=== PATIENT | female | born 1930 | race Caucasian/White ===

== ENCOUNTER 2018-06-23 02:43 | Inpatient (IN) | payer OTHER ==
--- OUTSIDE RECORDS SUMMARY | 2018-06-23 02:46 | XMS REPORT | Clinical Summary ---
:1930 Author Organization [facility] Address [address] [place] [address] Care Team Providers Name Role Phone Pedrito Starr MD Primary Care Provider Allergies Active Allergy Reactions Severity Noted Date Comments Codeine Rash Low 07/12/2017 Rash inside mouth Medications Medication Sig Dispensed Refills Start Date End Date Status aspirin 81 MG EC tablet Take 81 mg by 0 Active mouth daily. gabapentin (NEURONTIN) Take 300 mg by 0 Active 300 MG capsule mouth daily. levothyroxine Take 50 mcg by 0 Active (SYNTHROID, LEVOTHROID) mouth Every 50 MCG tablet morning on an empty stomach. simvastatin (ZOCOR) 10 Take 10 mg by 0 Active MG tablet mouth nightly. multivitamin per tablet Take 1 tablet by 0 Active mouth daily. Active Problems Problem Noted Date Back pain with sciatica 07/14/2017 Right hip pain 07/14/2017 Myofascial pain 07/14/2017 Encounters Date Type Specialty Care Team Description 07/14/2017 Anesthesia Event Jourdan Crocker Jr., MD 07/14/2017 Surgery [place], INJECTION,EPIDURAL [place] STEROID LUMBAR CAUDAL CATHETER 07/14/2017 Hospital Encounter [place], Lumbar radiculopathy (Primary Dx) ; [place] Myofascial pain 07/12/2017 Hospital Encounter Pre-Admission Resource, Oqmt Testing Preadmit Phone after 06/22/2017 Social History Tobacco Use Types Packs/Day Years Used Date Never Smoker Smokeless Tobacco: Never Used Alcohol Use Drinks/Week oz/Week Comments No Sex Assigned at Date Recorded Not on file Job Start Date Occupation Industry Not on file Not on file Not on file Travel History Travel Start Travel End No recent travel history available. 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 Xiao, as an intra-procedure imaging consultation was not requested. Reported fluoroscopy time: 42.7 seconds. Signed: Alessandro Arreaga MD Report Verified Date/Time:07/14/2017 11:23:47 Reading Location: [address] Neuro Reading Room Procedure Note Interface, External Ris In - 07/14/2017 11:26 AM CDT FINAL REPORT Fluoroscopy 2 views intraoperative 07/14/2017 11:19 AM CLINICAL HISTORY: Instrument localization COMPARISON: None available IMPRESSION: Please correlate imaging report findings with the procedure note prepared by Dr. Xiao, as an intra-procedure imaging consultation was not requested. Reported fluoroscopy time: 42.7 seconds. Signed: Alessandro Arreaga MD Report Verified Date/Time: 07/14/2017 11:23:47 Reading Location: [facility] [id number] Neuro Reading Room Performing Organization Address City/State/Zipcode Phone Number GE RIS after 06/22/2017 Insurance Payer Benefit Plan / Group Subscriber ID Type Phone Address MEDICARE MEDICARE A B xxxxxxxxxx Medicare AETNA - [place]GD CARE AETNA INDEMNITY NON CONTR xxxxxxxxx Comm ([place]) [place] [id number]
--- OUTSIDE RECORDS SUMMARY | 2018-06-23 02:46 | XMS REPORT | Clinical Summary ---
:1930 Author Organization [facility] Address [address] [place] [address] Care Team Providers Name Role Phone Pedrito Starr MD Primary Care Provider Allergies Active Allergy Reactions Severity Noted Date Comments Codeine Rash Low 05/06/2016 Medications Medication Sig Dispensed Refills Start Date End Date Status multivitamin Take 1 tablet by 0 Active (THERAGRAN) tablet mouth daily. vit A,C and Take 2 tablets 0 Active A-nehhjg-zclfucet by mouth daily. (OCUVITE WITH LUTEIN) 1,000 unit-200 mg-60 unit-2 mg tablet per tablet aspirin (ECOTRIN) Take 81 mg by 0 Active 81 MG enteric mouth. coated tablet gabapentin TAKE 1 CAPSULE 3 06/07/2016 Active (NEURONTIN) 300 mg BY MOUTH THREE capsule TIMES DAILY. levothyroxine TAKE 1 TABLET BY 0 05/19/2016 Active (SYNTHROID, MOUTH EVERY LEVOXYL) 50 mcg MORNING tablet multivitamin-minera Take by mouth. 0 Active ls-lutein (MULTIVITAMIN 50 PLUS) tablet simvastatin (ZOCOR) Take 10 mg by 0 05/27/2016 Active 10 MG tablet mouth nightly. latanoprost Administer 1 2.5 mL 3 04/09/2018 Active (XALATAN) 0.005 % drop to both ophthalmic solution eyes nightly. dorzolamide-timolol Administer 1 0 Discontinued (COSOPT) 22.3-6.8 drop to the 9 mg/mL ophthalmic right eye 2 solution (two) times a day. latanoprost Administer 1 0 Discontinued (XALATAN) 0.005 % drop to the 9 ophthalmic solution right eye nightly. azelastine 0.15 % 0 06/28/2016 Discontinued (205.5 mcg) 9 spray,non-aerosol ipratropium USE 2 SPRAYS IN 0 06/06/2016 Discontinued (ATROVENT) 0.06 % EACH NOSTRIL 3-4 9 nasal spray TIMES DAILY. traMADol (ULTRAM) 1 tab every 6 0 06/23/2016 Discontinued 50 mg tablet hours as needed 9 acetaminophen Take 325 mg by 0 Discontinued (TYLENOL) 325 MG mouth every 6 9 tablet (six) hours as needed for fever. acetaminophen Take 2 tablets 30 tablet 0 03/29/2018 (TYLENOL EXTRA (1,000 mg total) 9 STRENGTH) 500 MG by mouth every 6 tablet (six) hours as needed for moderate pain for up to 30 days. predniSONE Take by mouth 70 tablet 0 04/02/2018 (DELTASONE) 10 mg daily for 14 9 tablet pack days. Take 5 tabs (50mg) daily predniSONE Take 2 tablets 35 tablet 0 04/25/2018 (DELTASONE) 10 mg (20mg) daily for 9 tablet 7 days, then take 1 tablet (10mg) daily for 21 days as directed. Active Problems Problem Noted Date Vision loss of right eye 03/31/2018 Hyperkalemia 03/30/2018 Vision loss, right eye 03/29/2018 Pseudophakia of both eyes 03/17/2018 Overview: Doing well. Primary open angle glaucoma (POAG) of both eyes, severe stage 03/05/2018 Last Assessment & Plan: Unknown history per patient and son in room, came in for second opinion, never was told had glaucoma. Appears to be NLP due to glaucoma OD and severe end-stage glaucoma OS. Difficult exam due to patient positioning in wheelchair. Recommend starting glaucoma medications and seeking care with glaucoma subspecialty due to severity of glaucoma and in fact monocular status. Referred to Dr. Oropeza; appt made 03/07/18. Tp . Start Cosopt OU BID and latanoprost OU qhs. 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 06/05/2018 Hospital Encounter Plastic Surgery Brigido Key MD 05/31/2018 Office Visit Ophthalmology Nadeen Oropeza Primary open angle glaucoma (POAG) of both eyes, severe stage (Primary Dx); MD Mabel Pseudophakia of both eyes; Ptosis of both eyelids 05/11/2018 Documentation Ophthalmology Eddi Dominguez MD Results (Neuro-radiology Conference Report) 05/07/2018 Office Visit Ophthalmology Nadeen Oropeza Other optic atrophy, bilateral (Primary Dx); MD Mabel Unspecified visual field defects Jourdan Espinoza MD 05/07/2018 Office Visit Ophthalmology Nadeen Oropeza Primary open angle glaucoma (POAG) of both eyes, severe stage (Primary Dx); MD Mabel Other optic atrophy, bilateral 04/25/2018 Telephone Ophthalmology Center, Ophthalmology - Clinical Care 04/25/2018 Refill Ophthalmology Annemarie Max 04/24/2018 Orders Only Ophthalmology Jourdan Espinoza MD 04/24/2018 Telephone Ophthalmology Jourdan Espinoza MD 04/05/2018 Telephone Ophthalmology Jourdan Espinoza MD 04/05/2018 Telephone Ophthalmology [place], Ophthalmology - Clinical Care 03/31/2018 Anesthesia Event Plastic Surgery Stevenson Mcintosh MD 03/31/2018 Surgery Plastic Surgery Brigido Key, LIGATION OR BIOPSY, ARTERY, TEMPORAL, LEFT SIDE 03/30/2018 Surgery Plastic Surgery Brigido Key, Canceled LIGATION OR BIOPSY, ARTERY, TEMPORAL 03/29/2018 Hospital Encounter General Internal Mihai Vogt, Acute intractable headache, unspecified headache type (Primary Dx); - Medicine A-V fistula (HCC); 04/02/2018 Pascual Ruiz MD Hyperkalemia; Hypercalcemia; Vision loss, right eye 03/29/2018 Telephone Ophthalmology Jourdan Espinoza MD 03/28/2018 Lab Lab Nadeen Oropeza Headache around MD Mabel the eyes: rule out temporal arteritis 03/28/2018 Office Visit Ophthalmology Nadeen Oropeza Headache around the eyes: rule out temporal arteritis (Primary Dx); MD Mabel Primary open angle glaucoma (POAG) of both eyes, severe stage; Pseudophakia of both eyes 03/28/2018 Telephone Ophthalmology Nadeen Oropeza MD 03/07/2018 Office Visit Ophthalmology Nadeen Oropeza Primary open angle glaucoma (POAG) of both eyes, severe stage (Primary Dx); MD Mabel Pseudophakia of both eyes 03/03/2018 Refill Ophthalmology Eddi Dominguez MD 03/03/2018 Orders Only Ophthalmology Eddi Dominguez MD 03/02/2018 Office Visit Ophthalmology Patel Hernandez, Primary open angle MD glaucoma (POAG) of both eyes, severe stage (Primary Dx) 06/22/2017 Office Visit Orthopedic Surgery Tani Baltazar Fracture of right MD Elbert hip due to osteoporosis, initial encounter (Primary Dx) after 06/22/2017 Family History Medical History Relation Name Comments Heart disease Brother Heart disease Father Cancer Sister Relation Name Status Comments Brother Father Sister Social History Tobacco Use Types Packs/Day Years [...] Vital Sign Reading Time Taken Blood Pressure 118/59 06/05/2018 2:00 PM CDT Pulse 76 06/05/2018 2:00 PM CDT Temperature 36.3 C (97.4 F) 06/05/2018 2:00 PM CDT Respiratory Rate 18 06/05/2018 2:00 PM CDT Oxygen Saturation 99% 06/05/2018 2:00 PM CDT Inhaled Oxygen Concentration - - Weight 49 kg (108 lb) 06/05/2018 11:29 AM CDT Height 153.7 cm (5' 0.5") 06/05/2018 11:29 AM CDT Body Mass Index 20.75 06/05/2018 11:29 AM CDT Plan of Treatment Date Type Specialty Care Team Description 10/04/2018 Office Visit Ophthalmology Nadeen Oropeza MD [address] [place] [address] [phone] 10/24/2018 Office Visit Ophthalmology Jourdan Espinoza MD [address] [place], [place] [id number] Health Maintenance Due Date Last Done Comments SHINGLES VACCINES (#1) 1982 65+ PNEUMOCOCCAL VACCINE (1 of 2 - PCV13) 1997 PNEUMOCOCCAL POLYSACCHARIDE VACCINE AGE 65 AND OVER 1997 INFLUENZA VACCINE 09/13/2018 Implants Implanted Type Area Electronic Maintenance Supervisor Device Shelf Model / Identifier Expiration Serial / Date Lot [employer] Thred 4mm Hxgnl Socket Ss [id number] - [id number] Orthopedic N/A: N/A SYNTHES TRAUMA 208 [id number] / Implanted: 05/09/2016 (Quantity not on file) Trauma AND RECON / Implants [employer] Thred 4mm Hxgnl Socket Ss [id number] - [id number] Orthopedic N/A: N/A SYNTHES TRAUMA 208 [id number] / Implanted: 05/09/2016 (Quantity not on file) Trauma AND RECON / Implants Procedures Procedure Name Priority Date/Time Associated Diagnosis Comments REPAIR, 06/05/2018 1:00 PM Ptosis, myogenic, BLEPHAROPTOSIS, USING CDT bilateral FRONTALIS MUSCLE TECHNIQUE Special Needs TF 1300 REQ 0900 START EST 1HR OCT, OPTIC NERVE - OU Routine 05/07/2018 1:11 PM Other optic Results for this - BOTH EYES CDT atrophy, bilateral procedure are in the results section. AUTOMATED VISUAL Routine 05/07/2018 1:10 PM Other optic Results for this FIELD, EXTENDED - OS - CDT atrophy, bilateral procedure are in LEFT EYE the results section. HC COMPLETE BLD COUNT Routine 04/02/2018 5:25 AM Results for this W/AUTO DIFF MEDICARE CONTACT SPECIALIST procedure are in the results section. ESTIMATED GFR Routine 04/02/2018 4:00 AM Results for this MEDICARE CONTACT SPECIALIST procedure are in the results section. COMPREHENSIVE Routine 04/02/2018 4:00 AM Results for this METABOLIC PANEL MEDICARE CONTACT SPECIALIST procedure are in the results section. HC COMPLETE BLD COUNT Routine 04/01/2018 4:25 AM Results for this W/AUTO DIFF MEDICARE CONTACT SPECIALIST procedure are in the results section. ESTIMATED GFR Routine 04/01/2018 4:00 AM Results for this MEDICARE CONTACT SPECIALIST procedure are in the results section. COMPREHENSIVE Routine 04/01/2018 4:00 AM Results for this METABOLIC PANEL MEDICARE CONTACT SPECIALIST procedure are in the results section. LIGATION OR BIOPSY, 03/31/2018 2:30 PM VISION LOSS ARTERY, TEMPORAL MEDICARE CONTACT SPECIALIST ECG 12-LEAD Routine 03/31/2018 8:50 AM Results for this MEDICARE CONTACT SPECIALIST procedure are in the results section. MANUAL DIFFERENTIAL Routine 03/31/2018 4:50 AM Results for this MEDICARE CONTACT SPECIALIST procedure are in the results section. ESTIMATED GFR Routine 03/31/2018 4:50 AM Results for this MEDICARE CONTACT SPECIALIST procedure are in the results section. COMPREHENSIVE Routine 03/31/2018 4:50 AM Results for this METABOLIC PANEL MEDICARE CONTACT SPECIALIST procedure are in the results section. CBC WITH PLATELET AND Routine 03/31/2018 4:50 AM Results for this DIFFERENTIAL MEDICARE CONTACT SPECIALIST procedure are in the results section. TROPONIN Routine 03/30/2018 4:30 AM Results for this MEDICARE CONTACT SPECIALIST procedure are in the results section. ESTIMATED GFR Routine 03/30/2018 4:30 AM Results for this MEDICARE CONTACT SPECIALIST procedure are in the results section. BASIC METABOLIC PANEL Routine 03/30/2018 4:30 AM Results for this MEDICARE CONTACT SPECIALIST procedure are in the results section. MRI BRAIN & ORBIT W WO STAT 03/29/2018 9:40 PM Results for this CONTRAST MEDICARE CONTACT SPECIALIST procedure are in the results section. CT ANGIOGRAM NECK W WO STAT 03/29/2018 6:16 PM Results for this CONTRAST MEDICARE CONTACT SPECIALIST procedure are in the results section. CT ANGIOGRAM HEAD W WO STAT 03/29/2018 6:16 PM Results for this CONTRAST MEDICARE CONTACT SPECIALIST procedure are in the results section. CT HEAD WO CONTRAST STAT 03/29/2018 6:15 PM Results for this MEDICARE CONTACT SPECIALIST procedure are in the results section. ESTIMATED GFR STAT 03/29/2018 2:53 PM Results for this MEDICARE CONTACT SPECIALIST procedure are in the results section. B NATRIURETIC PEPTIDE STAT 03/29/2018 2:53 PM Results for this MEDICARE CONTACT SPECIALIST procedure are in the results section. TROPONIN STAT 03/29/2018 2:53 PM Results for this MEDICARE CONTACT SPECIALIST procedure are in the results section. C-REACTIVE PROTEIN STAT 03/29/2018 2:53 PM Results for this MEDICARE CONTACT SPECIALIST procedure are in the results section. SEDIMENTATION RATE STAT 03/29/2018 2:53 PM Results for this MEDICARE CONTACT SPECIALIST procedure are in the results section. COMPREHENSIVE STAT 03/29/2018 2:53 PM Results for this METABOLIC PANEL MEDICARE CONTACT SPECIALIST procedure are in the results section. HC COMPLETE BLD COUNT STAT 03/29/2018 2:53 PM Results for this W/AUTO DIFF MEDICARE CONTACT SPECIALIST procedure are in the results section. SURGICAL PATHOLOGY Routine 03/29/2018 11:41 AM Results for this REQUEST MEDICARE CONTACT SPECIALIST procedure are in the results section. SEDIMENTATION RATE STAT 03/28/2018 5:03 PM Headache around Results for this MEDICARE CONTACT SPECIALIST the eyes: rule out procedure are in temporal arteritis the results section. C-REACTIVE PROTEIN STAT 03/28/2018 5:03 PM Headache around Results for this MEDICARE CONTACT SPECIALIST the eyes: rule out procedure are in temporal arteritis the results section. HC COMPLETE BLD COUNT STAT 03/28/2018 5:03 PM Headache around Results for this W/AUTO DIFF MEDICARE CONTACT SPECIALIST the eyes: rule out procedure are in temporal arteritis the results section. XR HIP 2-3 VIEWS RIGHT Routine 06/22/2017 3:15 PM Pain of right hip Results for this CDT joint procedure are in the results section. after 06/22/2017 Results OCT, Optic Nerve - OU (05/07/2018 1:11 PM CDT) Narrative Performed At Right Eye Reliability was good. Temporal progression was stable. Left Eye Reliability was good. Temporal progression was stable. Automated Visual Field, Extended - OS (05/07/2018 1:10 PM CDT) Narrative Performed At Threshold was 24-2. Strategy was INGRID. Reliability was good. Progression has no prior data. CBC with platelet and differential (04/02/2018 5:25 AM MEDICARE CONTACT SPECIALIST)Only the most recent of5 resultswithin the time period is included. WBC 5.93 4.50 - 11.00 k/uL [facility] RBC 3.97 (L) 4.20 - 5.50 m/uL [facility] HGB 11.6 (L) 12.0 - 16.0 g/dL [facility] HCT 35.5 (L) 37.0 - 47.0 % [facility] MCV 89.4 82.0 - 100.0 fL [facility] MCH 29.2 27.0 - 34.0 pg [facility] MCHC 32.7 31.0 - 37.0 g/dL [facility] RDW - SD 41.4 37.0 - 55.0 fL [facility] MPV 9.8 8.8 - 13.2 fL [facility] Platelet count 191 150 - 400 k/uL [facility] Nucleated RBC 0.00 /100 WBC [facility] Neutrophils 77.3 (H) 39.0 - 69.0 % [facility] Lymphocytes 16.2 (L) 25.0 - 45.0 % [facility] Monocytes 6.2 0.0 - 10.0 % [facility] Eosinophils 0.0 0.0 - 5.0 % [facility] Basophils 0.0 0.0 - 1.0 % [facility] Immature granulocytes 0.3Comment: "Immature 0.0 - 1.0 % [facility] granulocytes" [facility] (promyelocytes, myelocytes, metamyelocytes) Specimen Blood Performing Organization Address City/[facility] Mex[facility]ode Phone Number [facility] DEPARTMENT OF PATHOLOGY AND [address] [place] [address] Estimated GFR (04/02/2018 4:00 AM MEDICARE CONTACT SPECIALIST)Only the most recent of5 resultswithin the time period is included. Estimated GFR 88 mL/min/1.73 m2 [facility] Comment: HOSPITAL CatergoryUnitsInterpretation G1 >=90 Normal or high G2 60-89Mildly decreased [id number] to moderately decreased P2p83-23Kvwdudehjo to severely decreased G4 15-29Severely decreased G5 <15Kidney failure The eGFR was calculated using the Chronic Kidney Disease Epidemiology Collaboration (CKD-EPI) equation. Interpretation is based on recommendations of the National Kidney Foundation-Kidney Disease Outcomes Quality Initiative (NKF-KDOQI) published in 2014. Specimen Plasma specimen Performing Organization Address City/[facility]/Zipcode Phone Number [facility] DEPARTMENT OF PATHOLOGY AND [address] [place] [address] Comprehensive metabolic panel (04/02/2018 4:00 AM MEDICARE CONTACT SPECIALIST)Only the most recent of4 resultswithin the time period is included. Sodium 144 135 - 148 mEq/L [facility] Potassium 4.1 3.5 - 5.0 mEq/L [facility] Chloride 112 98 - 112 mEq/L [facility] CO2 23 (L) 24 - 31 mEq/L [facility] Anion gap 9@ANIO 7 - 15 mEq/L [facility] BUN 19 8 - 23 mg/dL [facility] Creatinine 0.50 0.50 - 0.90 mg/dL [facility] Glucose 121 (H) 65 - 99 mg/dL [facility] Calcium 9.0 8.8 - 10.2 mg/dL [facility] Protein 6.0 (L) 6.3 - 8.3 g/dL [facility] Comment: HOSPITAL 4.6-7.0 g/dL 1 week 4.4-7.6 g/dL 7 months-1year5.1-7.3 g/dL 1-2 years5.6-7.5 g/dL >3 years6.0-8.0 g/dL 18-150 6.3-8.3 g/dL Albumin 3.1 (L) 3.5 - 5.0 g/dL [facility] A/G ratio 1.1 0.7 - 3.8 [facility] Alkaline phosphatase 122 (H) 35 - 104 U/L [facility] AST 19 10 - 35 U/L [facility] ALT 16 5 - 50 U/L [facility] Total bilirubin 0.4 0.0 - 1.2 mg/dL [facility] Specimen Plasma specimen Performing Organization Address City/State/Zipcode Phone Number [facility] DEPARTMENT OF PATHOLOGY AND [address] [place] [address] GENOMIC MEDICINE [address] [address] ECG 12 lead (03/31/2018 8:50 AM MEDICARE CONTACT SPECIALIST) Ventricular rate 70 [facility] Atrial rate 70 [facility] CA interval 144 [facility] QRSD interval 84 [facility] QT interval 392 [facility] QTC interval 423 [facility] P axis 1 52 [facility] QRS axis 1 50 [facility] T wave axis 73 [facility] EKG impression Normal sinus rhythm-Normal ECG-In automated [facility] MUSE comparison with ECG of 06-MAY-2016 22:10,-No significant change was found- Narrative Performed At Performing Organization Address City/State/Zipcode Phone Number [facility] MUSE [address] [place] [address] Manual differential (03/31/2018 4:50 AM MEDICARE CONTACT SPECIALIST) Manual differential PERFORMED [facility] Neutrophils 92.0 (H) 39.0 - 69.0 % [facility] Lymphocytes 5.0 (L) 25.0 - 45.0 % [facility] Monocytes 3.0 0.0 - 10.0 % [facility] Eosinophils 0.0 0.0 - 5.0 % [facility] Basophils 0.0 0.0 - 1.0 % [facility] Metamyelocytes 0 % [facility] Promyelocytes 0 % [facility] Platelet slide review Ronaldo adequate [facility] Ovalocytes Moderate [facility] Performing Organization Address [facility] Mex[facility]ode Phone Number [facility] DEPARTMENT OF PATHOLOGY AND [address] [place] [address] Troponin (03/30/2018 4:30 AM MEDICARE CONTACT SPECIALIST)Only the most recent of2 resultswithin the time period is included. Troponin <0.30 0.00 - 0.30 ng/mL [facility] Comment: 0.30 - 1.49 ng/mlMay indicate increased risk of acute coronary syndrome. >=1.5 ng/mlConsistent with acute myocardial infarction. The diagnostic value of a single normal or non-diagnostic result is questionable.Serial samples at 2-6 hour intervals are required to rule out acute myocardial injury. Specimen Plasma specimen Performing Organization Address City/[facility]/Zipcode Phone Number [facility] DEPARTMENT OF PATHOLOGY AND [address] [place] [phone] Basic metabolic panel (03/30/2018 4:30 AM MEDICARE CONTACT SPECIALIST) Sodium 143 135 - 148 mEq/L [facility] Potassium 4.2 3.5 - 5.0 mEq/L [facility] Chloride 105 98 - 112 mEq/L [facility] CO2 31 24 - 31 mEq/L [facility] Anion gap 7@ANIO 7 - 15 mEq/L [facility] BUN 16 8 - 23 mg/dL [facility] Creatinine 0.62 0.50 - 0.90 mg/dL [facility] Glucose 85 65 - 99 mg/dL [facility] Calcium 9.8 8.8 - 10.2 mg/dL [facility] Specimen Plasma specimen Performing Organization Address City/State/Zipcode Phone Number [facility] DEPARTMENT OF PATHOLOGY AND [address] [place] [address] GENOMIC MEDICINE [facility] [address] [place] [address] MRI Brain & Orbit W Wo Contrast (03/29/2018 9:40 PM MEDICARE CONTACT SPECIALIST) Narrative Performed At EXAMINATION: MRI BRAIN & ORBIT W WO CONTRAST [facility] CLINICAL HISTORY: eval for vision loss COMPARISON:Brain MRI 05/14/2016., Head CTA 03/29/2018 TECHNIQUE: Multiplanar and multisequence MRI imaging of the brain was obtained with and without contrast. Orbital images are obtained. FINDINGS: Brain MRI: No acute intracranial abnormality. No acute ischemia, intracranial hemorrhage, or mass effect. 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 Generalized age-related parenchymal volume loss. Mild chronic small vessel ischemic change in the supratentorial white matter. No suspicious enhancement. Orbital MRI: The orbital sequences are generally motion degraded. Within this limitation, there appears to be atrophic changes of the bilateral optic nerves which also involves the optic chiasm. There is no convinci ng T2 hyperintense signal of the optic nerves or enhancement. The remainder of the intraorbital soft tissues appear grossly normal, within the limitations of this motion greatest study. IMPRESSION: Brain MRI: No acute abnormality. Unchanged left convexity AV fistula. Orbital MRI: Atrophic changes of the bilateral optic nerves. There is no evidence of acute pathology. Specifically no enhancement or convincing T2 hyperintensity. Orbital sequences are motion degraded. [facility]-[id number] Procedure Note Interface, Radiology Results Incoming - 03/29/2018 10:40 PM MEDICARE CONTACT SPECIALIST EXAMINATION: MRI BRAIN & ORBIT W WO CONTRAST CLINICAL HISTORY: eval for vision loss COMPARISON: Brain MRI 05/14/2016., Head CTA 03/29/2018 TECHNIQUE: Multiplanar and multisequence MRI imaging of the brain was obtained with and without contrast. Orbital images are obtained. FINDINGS: Brain MRI: No acute intracranial abnormality. No acute ischemia, intracranial hemorrhage, or mass effect. 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 Generalized age-related parenchymal volume loss. Mild chronic small vessel ischemic change in the supratentorial white matter. No suspicious enhancement. Orbital MRI: The orbital sequences are generally motion degraded. Within this limitation, there appears to be atrophic changes of the bilateral optic nerves which also involves the optic chiasm. There is no convincing T2 hyperintense signal of the optic nerves or enhancement. The remainder of the intraorbital soft tissues appear grossly normal, within the limitations of this motion greatest study. IMPRESSION: Brain MRI: No acute abnormality. Unchanged left convexity AV fistula. Orbital MRI: Atrophic changes of the bilateral optic nerves. There is no evidence of acute pathology. Specifically no enhancement or convincing T2 hyperintensity. Orbital sequences are motion degraded. [facility]-[id number] Performing Organization Address City/State/Zipcode Phone Number [facility] [address] [place] [address] CTA Neck W Wo Contrast (03/29/2018 6:16 PM MEDICARE CONTACT SPECIALIST) Narrative Performed At EXAMINATION: CT [facility]: eval for aneurysm COMPARISON:None TECHNIQUE: Imaging of the cervical circulation was obtained from the upper thorax to the skull base during the arterial phase of enhancement. Postprocessing was performed with MIP multiplanar and 3D reconstructed images. CT scans are performed using radiation dose reduction techniques. Technical factors are evaluated and adjusted to ensure appropriate moderation of exposure. Automated dose management technology is applied to adjust radiation exposure while achieving a diagnostic quality image. FINDINGS: Examination is limited by contrast timing, which is early. Despite this limitation: The common carotid arteries, carotid bulbs, internal carotid arteries and external carotid arteries are opacified with 0% stenosis by NASCET criteria. The vertebral arteries are patent throughout the visualized cervical segments without significant stenosis. The vertebral arteries are roughly codominant. IMPRESSION: No hemodynamically significant narrowing of the cervical vessels by NASCET criteria. [facility]-[id number] Procedure Note Interface, Radiology Results Incoming - 03/29/2018 6:51 PM MEDICARE CONTACT SPECIALIST EXAMINATION: CT ANGIOGRAM NECK W WO CONTRAST CLINICAL HISTORY: eval for aneurysm COMPARISON: None TECHNIQUE: Imaging of the cervical circulation was obtained from the upper thorax to the skull base during the arterial phase of enhancement. Postprocessing was performed with MIP multiplanar and 3D reconstructed images. CT scans are performed using radiation dose reduction techniques. Technical factors are evaluated and adjusted to ensure appropriate moderation of exposure. Automated dose management technology is applied to adjust radiation exposure while achieving a diagnostic quality image. FINDINGS: Examination is limited by contrast timing, which is early. Despite this limitation: The common carotid arteries, carotid bulbs, internal carotid arteries and external carotid arteries are opacified with 0% stenosis by NASCET criteria. The vertebral arteries are patent throughout the visualized cervical segments without significant stenosis. The vertebral arteries are roughly codominant. IMPRESSION: No hemodynamically significant narrowing of the cervical vessels by NASCET criteria. [facility]-[id number] Performing Organization Address City/State/Zipcode Phone Number [facility] [address] [place] [address] CTA Head W Wo Contrast (03/29/2018 6:16 PM MEDICARE CONTACT SPECIALIST) Narrative Performed At EXAMINATION: CT ANGIOGRAM HEAD W WO CONTRAST [facility] CLINICAL HISTORY: eval for aneurysm COMPARISON:MRI brain 05/14/2016. TECHNIQUE:Imaging of the intracranial circulation was obtained from the skull base to the vertex during the arterial phase of enhancement. Postprocessing was performed with MIP multiplanar and 3D reconstructed images.CT imaging was performed with iterative reconstruction technique and/or automated exposure control to reduce radiation dose. 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 This finding is unchanged when compared to the prior MRI from 2017, for example image 17 of series 6 on that study. 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 The cervical, petrous, cavernous, clinoid and supraclinoid segments of internal carotid arteries are patent bilaterally. No aneurysms, dissection flaps or measurable stenosis identified. The major branches of the anterior and posterior circulations are patent. No basilar tip aneurysms identified. The V4 segments are symmetric and normal in appearance. Limited examination of the brain demonstrates no evidence of acute intracranial abnormality.No ventriculomegaly or midline shift is seen. 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 2.Patent [place] vasculature, without evidence of significant stenosis. [facility]-[id number] Procedure Note Hm Interface, Radiology Results Incoming - 03/29/2018 7:03 PM MEDICARE CONTACT SPECIALIST EXAMINATION: CT ANGIOGRAM HEAD W WO CONTRAST CLINICAL HISTORY: eval for aneurysm COMPARISON: MRI brain 05/14/2016. TECHNIQUE: Imaging of the intracranial circulation was obtained from the skull base to the vertex during the arterial phase of enhancement. Postprocessing was performed with MIP multiplanar and 3D reconstructed images. CT imaging was performed with iterative reconstruction technique and/or automated exposure control to reduce radiation dose. 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 This finding is unchanged when compared to the prior MRI from 2017, for example image 17 of series 6 on that study. 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 The cervical, petrous, cavernous, clinoid and supraclinoid segments of internal carotid arteries are patent bilaterally. No aneurysms, dissection flaps or measurable stenosis identified. The major branches of the anterior and posterior circulations are patent. No basilar tip aneurysms identified. The V4 segments are symmetric and normal in appearance. Limited examination of the brain demonstrates no evidence of acute intracranial abnormality. No ventriculomegaly or midline shift is seen. IMPRESSION: 1. 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 2. Patent [place] vasculature, without evidence of significant stenosis. [facility]-[id number] Performing Organization Address City/State/Zipcode Phone Number [facility] [address] [place] [address] CT Head Wo Contrast (03/29/2018 6:15 PM MEDICARE CONTACT SPECIALIST) Narrative Performed At EXAMINATION:CT HEAD WO CONTRAST [facility] CLINICAL HISTORY:[place] COMPARISON:MRI of the brain dated May 14, 2016 FINDINGS: There is generalized brain parenchymal involution atrophy with white matter nonspecific hypodensities. There is mild stable nonspecific ventriculomegaly most likely related to central volume loss. There is no evidence of acute hemorrhage, mass lesion, or midline shift. The martinez-white matter differentiation is preserved with no evidence of acute territorial infarction.There is no extra-axial fluid collection. Visualized paranasal sinuses and mastoid air cells are clear. Bones, orbits, and soft tissues are unremarkable. 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 images were acquired using low-dose technique with automated exposure control. IMPRESSION: No acute intracranial hemorrhage or mass effect. No interval change. [id number] Procedure Note Hm Interface, Radiology Results Incoming - 03/29/2018 6:23 PM MEDICARE CONTACT SPECIALIST EXAMINATION: CT HEAD WO CONTRAST CLINICAL HISTORY: [place]orado COMPARISON: MRI of the brain dated May 14, 2016 FINDINGS: There is generalized brain parenchymal involution atrophy with white matter nonspecific hypodensities. There is mild stable nonspecific ventriculomegaly most likely related to central volume loss. There is no evidence of acute hemorrhage, mass lesion, or midline shift. The martinez-white matter differentiation is preserved with no evidence of acute territorial infarction. There is no extra-axial fluid collection. Visualized paranasal sinuses and mastoid air cells are clear. Bones, orbits, and soft tissues are unremarkable. 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 images were acquired using low-dose technique with automated exposure control. IMPRESSION: No acute intracranial hemorrhage or mass effect. No interval change. [id number] Performing Organization Address City/State/Zipcode Phone Number [facility] [address] [place] [address] Sedimentation rate (03/29/2018 2:53 PM MEDICARE CONTACT SPECIALIST)Only the most recent of2 resultswithin the time period is included. Sedimentation rate 49 (H) 0 - 20 mm/hr [facility] Specimen Blood Performing Organization Address City/[facility]/Zipcode Phone Number [facility] DEPARTMENT OF PATHOLOGY AND [address] [place] [address] GEN[address] [address] C-reactive protein (03/29/2018 2:53 PM MEDICARE CONTACT SPECIALIST)Only the most recent of2 resultswithin the time period is included. CRP 0.35 0.00 - 0.50 mg/dL [facility] Specimen Plasma specimen Performing Organization Address City/[facility] Phone Number [facility] DEPARTMENT OF PATHOLOGY AND [address] [place] [address] GENOM[address] MED[address] [address] B natriuretic peptide (03/29/2018 2:53 PM MEDICARE CONTACT SPECIALIST) BNP 85 0 - 100 pg/mL [facility] Specimen Blood Performing Organization Address [facility] Phone Number [facility] DEPARTMENT OF PATHOLOGY AND [address] [place] [phone] GENOMIC MEDICINE [address] [address] Surgical pathology request (03/29/2018 11:41 AM MEDICARE CONTACT SPECIALIST) [facility] DEPARTMENT OF PATHOLOGY AND GENOMIC MEDICINE Surgical pathology report See link below for PDF [facility] DEPARTMENT OF Lab Report PATHOLOGY AND GENOMIC MEDICINE Result status This is Final Report [facility] DEPARTMENT OF for [id number] PATHOLOGY AND GENOMIC MEDICINE Performing Organization Address [facility] Phone Number [facility] DEPARTMENT OF PATHOLOGY AND [address] [place] [phone] GENOMIC MEDICINE XR Hip 2-3 View Right (06/22/2017 3:15 PM CDT) Narrative Performed At AP pelvis, AP hip, and lateral hip x-rays obtained today demonstrate right [facility] hip with percutaneous screws x 3 intact.The hip fracture has healed. There is moderate narrowing of the joint space with moderate arthritic changes. Performing Organization Address [facility] Phone Number [facility] [address] [place] [address] after 06/22/2017 Insurance Payer Benefit Plan / Group Subscriber ID Type Phone Address MEDICARE MEDICARE PART A AND B xxxxxxxxxxx Medicare [place], [place] AETNA A[employer] INDEMNITY xxxxxxxxx Indemnity (Home) [place] [address] Advance Directives Patient has advance care planning documents on file. For more information, please contact:[address] [address]
--- OUTSIDE RECORDS SUMMARY | 2018-06-23 02:47 | XMS REPORT ---
:1930 [facility] Address [address] [place] [address] Care Team Providers Name Role Phone Unavailable Unavailable Unavailable Problems This patient has no known problems. Allergies, Adverse Reactions, Alerts This patient has no known allergies or adverse reactions. Medications This patient has no known medications. Results Test Description Test Time Test Comments Text Results Atomic Results Result Comments TERESSA PEREZ IN 2017-07-14 11:23:00 Reason for FINAL REPORT PATIENT ID: OR/30 MINUTE exam:->YESICA LUMBAR [id number] Fluoroscopy 2 INCREMENTS EPIDURAL STEROID views intraoperative INJECTION 07/14/2017 11:19 AM CLINICAL HISTORY: Instrument localization COMPARISON: None available IMPRESSION: Please correlate imaging report findings with the procedure note prepared by Dr. Xiao, as an intra-procedure imaging consultation was not requested. Reported fluoroscopy time: 42.7 seconds. Signed: Alessandro Arreaga Verified Date/Time: 07/14/2017 11:23:47 Reading Location: [facility] B1 C013V Neuro Reading Room
[2018-06-23 03:52] LABS: Urine Blood TRACE (NEG); Urine Glucose NEGATIVE (NEG); Urine Protein NEGATIVE (NEG); Urine Specific Gravity 1.015 (1.005-1.030); Urine pH 6.5 (5.0-7.0)
[2018-06-23] MEDS ORDERED: FENTANYL CITR 100 MCG/2 ML ONE ×3 (04:09→08:20)
[2018-06-23] MEDS ORDERED: ONDANSETRON 4 MG/2 ML VIAL ONE (04:10)
[2018-06-23] MEDS ORDERED: NA CHLORIDE 0.9% 1,000 ML ONE (04:10)
[2018-06-23 04:13] LABS: Protime INR 1.01
[2018-06-23 04:18] LABS: Absolute Lymphocytes (CBC) 0.8 K/uL (0.7-4.9); Absolute Monocytes 0.4 K/uL (0.1-1.3); Absolute Neutrophil 3.2 K/uL (1.8-8.0); Basophils % 0.3 % (0-1.3); Eosinophils % 1.7 % (0-4.4); Hematocrit 41.8 % (36.0-45.0); Lymphocytes % 18.1 % (15.3-44.8); Monocytes % 8.3 % (3.3-12.3); RBC Red Blood Cell Count 4.77 M/uL (3.86-4.86)
[2018-06-23 04:32] LABS: ALT/SGPT 27 U/L (12-78); AST/SGOT 24 U/L (15-37); Alkaline Phosphatase 81 U/L (45-117); BUN Blood Urea Nitrogen 14 mg/dL (7-18); Bicarbonate 31 mmol/L (21-32); Bilirubin Direct 0.2 mg/dL (0-0.2); Bilirubin Total 0.7 mg/dL (0.2-1.0); Glucose Level 96 mg/dL (74-106); Lipase 246 U/L (73-393); Magnesium 2.4 mg/dL (1.8-2.4); NT PRO-BNP 128 pg/mL (<450); Potassium 4.3 mmol/L (3.5-5.1); Protein, Total 7.3 g/dL (6.4-8.2); Sodium Level 146 mmol/L (136-145); Troponin (Emerg Dept Use Only) < 0.02 ng/mL (0.0-0.045)
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
[2018-06-23] MEDS ORDERED: HYDROCODONE/APAP 5/325 MG TAB ONE (08:00)
[2018-06-23] MEDS ORDERED: ACETAMINOPHEN 500 MG TAB PO PRN ×2 (08:32→09:09)
[2018-06-23] MEDS ORDERED: ONDANSETRON 4 MG/2 ML VIAL IV PRN (08:32)
[2018-06-23] MEDS ORDERED: NA CHLORIDE 0.9% 1,000 ML IV SCH ×2 (08:32→11:00)
[2018-06-23] MEDS ORDERED: TRAMADOL HCL 50 MG TAB PO PRN (09:05)
--- NOTE | 2018-06-23 09:19 | EKG ---
Test Date: 2018-06-23 Test Time: 03:25:13 Photo Machine Operator: ISHAAN MEASUREMENT RESULTS: Intervals: Rate: 58 DE: 156 QRSD: 82 QT: 420 QTc: 412 [place]: P: 48 DE: 156 QRS: 48 T: 53 INTERPRETIVE STATEMENTS: Sinus bradycardia Otherwise normal ECG Compared to ECG 05/06/2016 12:20:50 Sinus rhythm no longer present Electronically Signed On 06-23-18 09:18:36 CDT by Gustavo Al
[2018-06-23] MEDS: FAMOTIDINE 20 MG/2 ML VIAL IV SCH ×2 (11:01→20:57)
[2018-06-23] MEDS: ASPIRIN EC 81 MG TAB PO SCH (11:01)
--- NOTE | 2018-06-23 11:29 | RAD REPORT ---
EXAM DESCRIPTION: RAD - Knee Left 3 View - 06/23/2018 10:58 am CLINICAL HISTORY: fall, left knee pain COMPARISON: No comparisons FINDINGS: Significant arthritic changes involving the medial joint compartment. No fracture or dislo cation. No joint effusion.
[2018-06-23] MEDS: ALBUTEROL 2.5 MG/3 ML NEB SOL NEB SCH ×2 (13:53→19:45)
[2018-06-23] MEDS: TRAMADOL HCL 50 MG TAB PO SCH ×2 (14:53→20:56)
[2018-06-23] MEDS: GABAPENTIN 300 MG CAP PO SCH ×2 (14:55→20:57)
[2018-06-23] MEDS: ACETAMINOPHEN 500 MG TAB PO SCH ×2 (14:55→20:55)
[2018-06-23] MEDS: POLYETHYL GLY 3350 17 GM/DOSE PO SCH (18:00)
--- NOTE | 2018-06-23 19:16 | HP ---
Date of Admission: 06/23/2018 Chief Complaint: Fall and rib pain. History Of Present Illness: This is an 87-year-old very pleasant female patient who lives at home by herself, uses a walker to ambulate, and last night she had gone to the bathroom, and she was using her walker as I understand by talking to the patient's son, and she fell down in the bathroom. The patient's son believes that she stumbled over a raised area in her shower, but she really does not know exactly how she fell down because she was by herself. After she fell down, she was not able to get up. She has a Life Alert system in place, so after she pressed on it family went there, ambulance was called, and the patient was brought into the emergency room. After the patient was evaluated in the ER, she was admitted to hospital with multiple rib fractures, pleural effusion, and atelectasis on the left side. The patient has significant amount of pain and that does not allow her to do any movement. She is not able to get up from the bed and also given the slight change in the position, to roll on the side is extremely painful. When I saw her, her son was at bedside. Allergies: TO CODEINE. Medications: She takes aspirin 81 mg p.o. daily, simvastatin 10 mg p.o. daily, levothyroxine 50 mcg p.o. daily, gabapentin 300 mg p.o. 3 times a day, Senokot- S 2 tablets daily, MiraLAX 17 g powder daily for constipation. Review of Systems: Musculoskeletal: As mentioned above. GI: Has chronic constipation. All other systems reviewed and negative. Social History: Negative for smoking and alcohol use. Family History: Significant for heart disease and cancer of pancreas. Past Surgical History: Significant for hysterectomy. 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 Physical Examination: Vital Signs: Last temperature 97.2, pulse 59, respiratory rate 20, blood pressure 141/56, oxygen saturation 93%. Height 5 feet 1 inch, weight 106 pounds. General: Awake, alert, oriented, not in distress. HEENT: Head atraumatic, normocephalic. Conjunctivae nonerythematous. Sclerae white. Mouth, no thrush or edema noted. Ears/Nose, no mass, lesion, discharge noted. Neck: Supple. No JVD, lymph nodes, bruit, thyromegaly noted. Lungs: Has diminished air entry in left lower lung field and the patient takes very shallow breaths. Heart: Normal heart sounds, no murmur or gallop. Abdomen: Soft, bowel sounds normal. No guarding, rigidity, tenderness, mass, hepatosplenomegaly, distention, or bruit noted. Extremities: No leg edema. No calf tenderness. Skin: No rash, ulcer, cellulitis. Lymphatics: No lymph node enlargement in neck, supraclavicular, infraclavicular region. Neuro: No focal neurological deficit. Chest: The patient has significant tenderness in the left posterolateral repeat cage. External Genitalia: Deferred. Rectal: Deferred. Laboratory Data: Chest x-ray, no acute cardiopulmonary changes. CAT scan shows evidence of multiple fractures in the left posterior rib including ribs numbers 6, 8, 9, 10, and 11 with presence of atelectasis and pleural effusion in the left lower lung region. The white count 4.4, hemoglobin 13.8, platelets 165, sodium 146, potassium 4.3, chloride 110, bicarb 31, BUN 14, creatinine 0.68, glucose 96. Liver function tests unremarkable. Troponin less than 0.02. Lipase 246. Urinalysis, trace blood otherwise negative. No evidence of infection. Impression: 1. Multiple rib fracture, left side, 6, 8, 9, 10, and 11 ribs. 2. Left pleural effusion. 3. Atelectasis, left lung. 4. Osteoarthritis, multiple sites. 5. Hyperlipidemia. 6. Chronic constipation. 7. Hypothyroidism. 8. Diverticulosis. 9. Allergic rhinitis. Plan: We will admit the patient to hospital for further evaluation and management of this problem. The patient is appropriate for inpatient and is expected to spend 2 midnights in hospital. The patient is at high risk for developing DVT as well as pneumonia because of her immobility and shallow breathing with multiple rib fractures and atelectasis as noted. Incentive spirometer was ordered and was advised when I was talking to patient and her son that she should try to do that every hour and SCD was ordered for DVT prophylaxis. After a day or 2 days, we may consider heparin or Lovenox if necessary, but right now we will not order such anticoagulant medication. We will continue home medications per order. The patient has IV fentanyl ordered p.r.n. for pain. I will go ahead and order Tylenol and tramadol on a scheduled basis 3 times a day to provide her some consistent pain relief, and then she can use IV pain medication on top of that for pain control. We will try to manage her constipation with the medications per order which is Senokot S as well as MiraLAX. Physical Therapy was consulted to start ambulation as patient tolerates, and we will see if rehab can except her for inpatient rehab and for some reason if she is not able to go to rehab, then long term facility placement for short-term stay for therapy was recommended to patient and her son today. I will see her tomorrow for followup. We will reduce her IV fluid to finish current bag and then discontinue IV fluid. YOSEF/JUAQUIN Voice ID: [id number] MTDD
[2018-06-23] MEDS: DOCUSATE NA/SENNA CONC 1 TAB PO SCH (20:56)
[2018-06-23] MEDS: ATORVASTATIN 10 MG TAB PO SCH (20:57)
[2018-06-23] MEDS: FENTANYL CITR 100 MCG/2 ML IV PRN (23:50)
[2018-06-24] MEDS: ALBUTEROL 2.5 MG/3 ML NEB SOL NEB SCH ×4 (01:35→20:30)
[2018-06-24 05:11] LABS: Absolute Monocytes 0.5 K/uL (0.1-1.3); Absolute Neutrophil 2.6 K/uL (1.8-8.0); Basophils % 0.8 % (0-1.3); Eosinophils % 1.8 % (0-4.4); Hematocrit 35.8 % (36.0-45.0); Lymphocytes % 24.2 % (15.3-44.8); MPV 7.9 fL (7.6-11.3); RBC Red Blood Cell Count 4.07 M/uL (3.86-4.86)
[2018-06-24 05:24] LABS: BUN Blood Urea Nitrogen 10 mg/dL (7-18); Bicarbonate 29 mmol/L (21-32); Glucose Level 84 mg/dL (74-106); Potassium 3.9 mmol/L (3.5-5.1); Sodium Level 145 mmol/L (136-145)
[2018-06-24] MEDS: LEVOTHYROXINE SOD 0.05 MG TABLET PO SCH (06:01)
[2018-06-24] MEDS: FENTANYL CITR 100 MCG/2 ML IV PRN (06:31)
--- NOTE | 2018-06-24 07:39 | RAD REPORT ---
EXAM DESCRIPTION: RAD - Chest Single View - 06/24/2018 6:56 am CLINICAL HISTORY: Chest pain COMPARISON: June 23 portable exam TECHNIQUE: AP portable chest image was obtained in supine positioning 0419 hours . FINDINGS: No new or progressive lung parenchymal process. Heart size and vasculature are stable. No measurable pleural effusion and no pneumothorax. No acute bony abnormality seen. No acute aortic find ing. Cardiomediastinal silhouette is distorted by rotation. IMPRESSION: No acute cardiopulmonary process. No new or progressive finding from prior day imaging.
[2018-06-24] MEDS: ENOXAPARIN 30 MG/0.3 ML SQ SCH (07:51)
[2018-06-24] MEDS: POLYETHYL GLY 3350 17 GM/DOSE PO SCH (07:52)
[2018-06-24] MEDS: GABAPENTIN 300 MG CAP PO SCH ×3 (07:52→20:59)
[2018-06-24] MEDS: FAMOTIDINE 20 MG/2 ML VIAL IV SCH ×2 (07:52→21:01)
[2018-06-24] MEDS: ACETAMINOPHEN 500 MG TAB PO SCH ×3 (07:53→21:00)
[2018-06-24] MEDS: ASPIRIN EC 81 MG TAB PO SCH (07:54)
[2018-06-24] MEDS: TRAMADOL HCL 50 MG TAB PO SCH ×3 (07:54→20:59)
--- NOTE | 2018-06-24 13:44 | PN ---
Date of Progress Note: 06/24/2018 Subjective: The patient was seen this morning for followup. No new complaints or problems reported by the patient. Her son was present with her at bedside. Her pain is under better control with curr ent pain medication. Has not had a bowel movement since her admission to the hospital. Denies any s hortness of breath. No nausea. No vomiting. Objective: Vital Signs: Reviewed. HEENT: Examination unremarkable. Lungs: Clear to auscultation. Heart: Sounds normal. Abdomen: Soft. Bowel sounds normal. No guarding, rigidity, tenderness, or distention. Extremities: No leg edema. Laboratory Data: White count 4.2, hemoglobin 12, platelets 137. Sodium 145, potassium 3.9, chloride 112, bicarb 29, BUN 10, creatinine 0.53, glucose 84. Impression: 1.Multiple rib fractures, left side, 6, 8, 9, 10, and 11. 2.Left pleural effusion. 3.Atelectasis, left lung. Plan: We will go ahead and continue current medications. Continue Tylenol and tramadol on scheduled basis per order and the patient has p.r.n. order for fentanyl and current pain medication seems to b e working well for her. We will continue current stool softener and laxative and by tomorrow if she does not have a bowel movement. We will consider a suppository. Physical therapy to work with the p atient and we will await further rehab evaluation. If the patient cannot go to inpatient rehab, then we will have to consider sending her to intermediate facility f or a short-term stay. YOSEF/MODL Voice ID: [id number] Report ID: [id number]
[2018-06-24] MEDS: ATORVASTATIN 10 MG TAB PO SCH (21:00)
[2018-06-24] MEDS: DOCUSATE NA/SENNA CONC 1 TAB PO SCH (21:00)
[2018-06-25] MEDS: ALBUTEROL 2.5 MG/3 ML NEB SOL NEB SCH ×4 (01:40→20:00)
[2018-06-25] MEDS: LEVOTHYROXINE SOD 0.05 MG TABLET PO SCH (06:42)
[2018-06-25] MEDS: ASPIRIN EC 81 MG TAB PO SCH (08:06)
[2018-06-25] MEDS: ACETAMINOPHEN 500 MG TAB PO SCH ×3 (08:06→20:23)
[2018-06-25] MEDS: POLYETHYL GLY 3350 17 GM/DOSE PO SCH (08:07)
[2018-06-25] MEDS: TRAMADOL HCL 50 MG TAB PO SCH ×3 (08:07→20:23)
[2018-06-25] MEDS: ENOXAPARIN 30 MG/0.3 ML SQ SCH (08:07)
[2018-06-25] MEDS: FAMOTIDINE 20 MG/2 ML VIAL IV SCH ×2 (08:07→20:21)
[2018-06-25] MEDS: GABAPENTIN 300 MG CAP PO SCH ×3 (08:08→20:22)
[2018-06-25 09:38] VITALS: BMI 20.7
--- NOTE | 2018-06-25 10:39 | RAD REPORT ---
EXAM DESCRIPTION: CT Chest With Intravenous Contrast CT Abdomen and Pelvis With Intravenous Contrast CLINICAL HISTORY: The patient is 87 years old and is Female; PAIN TECHNIQUE: Axial computed tomography images of the chest, abdomen and pelvis with intravenous contra st. Sagittal and coronal reformatted images were created and reviewed. This CT exam was performed using one or more of the following dose reduction techniques: automated exposure control, adjustme nt of the mA and/or kV according to patient size, and/or use of iterative reconstruction technique. COMPARISON: No relevant prior studies available. FINDINGS: CHEST: LUNGS: The lungs are clear of focal opacity, mass, or consolidation. PLEURAL SPACE: Trace left pleural effusion is present. No pneumothorax. HEART: A trace pericardial effusion is present. ABDOMEN: LIVER: Unremarkable. No mass. GALLBLADDER AND BILE DUCTS: The gallbladder is distended. No calcified gallstones or ductal dila tation is seen. PANCREAS: No ductal dilation. No mass. SPLEEN: Unremarkable. ADRENALS: Unremarkable. No mass. KIDNEYS AND URETERS: Unremarkable. No hydronephrosis. No solid mass. STOMACH AND BOWEL: The stomach is minimally fluid filled. The small bowel is normal in caliber. A large amount stool is present throughout the colon. There is no mucosal thickening or evidence of b owel obstruction. A few colonic diverticula are present without surrounding inflammation. PELVIS: APPENDIX: No findings to suggest acute appendicitis. BLADDER: Unremarkable. No mass. REPRODUCTIVE: Unremarkable as visualized. CHEST, ABDOMEN and PELVIS: INTRAPERITONEAL SPACE: Unremarkable. No significant fluid collection. No free air. BONES/JOINTS: Postsurgical change of the proximal right femur is present. Fractures of the lef t sixth,, eighth, ninth, 10th, 11th ribs are present. Multilevel degenerative change of the spine i s present. No other fracture is visualized of the axial and appendicular skeleton. SOFT TISSUES: Subcutaneous air within the left posterior chest wall is present. VASCULATURE: Unremarkable. No aortic aneurysm. LYMPH NODES: Unremarkable. No enlarged lymph nodes. IMPRESSION: 1. Several left posterior rib fractures as described. No pneumothorax. 2. No evidence of solid organ injury on this contrasted CT of the chest, abdomen, and pelvis. 3. Small left pleural effusion and likely left basilar atelectasis. EXAM DESCRIPTION: CT Head Without Intravenous Contrast CT Cervical Spine Without Intravenous Contrast CLINICAL HISTORY: The patient is 87 years old and is Female; PAIN TECHNIQUE: Axial computed tomography images of the head/brain and cervical spine without intravenous contrast. Sagittal and coronal reformatted images were created and reviewed. This CT exam was pe rformed using one or more of the following dose reduction techniques: automated exposure control, a djustment of the mA and/or kV according to patient size, and/or use of iterative reconstruction techn ique. COMPARISON: No relevant prior studies available. FINDINGS: BRAIN: There is diffuse cerebral atrophy present, consistent with this patient's age. Th ere is patchy hypoattenuation of the deep white matter which is non-specific, but most likely owing t o chronic small vessel ischemic change in a patient of this age group. No intracranial hemorrhage, mass effect, midline shift is seen. There are no extra-axial fluid collections. VENTRICLES: There is diffuse prominence of the ventricles, which is likely related to central at rophy. SKULL: No acute fracture. SINUSES: Unremarkable as visualized. No acute sinusitis. MASTOID AIR CELLS: Unremarkable as visualized. No mastoid effusion. VERTEBRAE: The vertebral body heights and alignment are maintained. No acute fracture. DISCS/SPINAL CANAL/NEURAL FORAMINA: There is multi-level intervertebral disc height loss. There are disc-osteophyte complexes at several levels, with associated mild spinal canal narrowing. There i s also facet hypertrophy and uncovertebral joint osteophytosis, with associated multilevel neural for aminal narrowing. SOFT TISSUES: The soft tissues are normal. IMPRESSION: No acute intracranial findings. 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 Electronically signed by: Ivon Fam MD 06/23/2018 5:57 AM CDT Due to temporary technical issues with the PACS/Fluency reporting system, reports are being signed by the in house radiologist as a courtesy to ensure prompt reporting. The interpreting radiologist is f ully responsible for the content of the report.
--- NOTE | 2018-06-25 10:41 | RAD REPORT ---
EXAM DESCRIPTION: XR Chest, 1 View CLINICAL HISTORY: The patient is 87 years old and is Female; CHEST PAIN TECHNIQUE: Frontal view of the chest. COMPARISON: No relevant prior studies available. FINDINGS: LUNGS: Unremarkable. No consolidation. PLEURAL SPACE: Unremarkable. No pneumothorax. HEART: Unremarkable. No cardiomegaly. MEDIASTINUM: Unremarkable. BONES/JOINTS: The left-sided rib fractures are not as well visualized. VASCULATURE: Atherosclerosis of the aorta is present. IMPRESSION: No acute cardiopulmonary process. Electronically signed by: Ivon Fam MD 06/23/2018 5:56 AM CDT Due to temporary technical issues with the PACS/Fluency reporting system, reports are being signed by the in house radiologist as a courtesy to ensure prompt reporting. The interpreting radiologist is f ully responsible for the content of the report.
[2018-06-25] MEDS ORDERED: BISACODYL 10 MG RECTAL SUPP PR ONE (14:30)
[2018-06-25] MEDS: ATORVASTATIN 10 MG TAB PO SCH (20:21)
[2018-06-25] MEDS: DOCUSATE NA/SENNA CONC 1 TAB PO SCH (20:24)
[2018-06-25] MEDS: HYDROCODONE/APAP 5/325 MG TAB PO PRN (23:08)
--- NOTE | 2018-06-26 00:12 | PN ---
Date of Progress Note: 06/25/2018 Subjective: The patient was seen this morning for followup. She was lying in bed, not in distress. Her 2 sons were present at bedside. During nighttime, the patient had confusion and hallucination. Yesterday afternoon, she had little bit problem, but then it resolved during nighttime while one of her sons was present sleeping in the room with her. All of a sudden, he found out that the patient w as standing next to him and she was confused, disoriented. Respiratory therapist had come in to give breathing treatment and she thought that there was somebody in the room, she got scared and got out of the bed. This morning when I saw her, she was lying in bed, not in any distress. Objective: Vital Signs: Reviewed. HEENT: Unremarkable. Lungs: Clear to auscultation. Heart: Sounds normal. Abdomen: Soft. Bowel sounds normal. No guarding, rigidity, tenderness, distention. Extremities: No leg edema. Impression: 1.Delirium, acute. 2.Rib fracture, multiple ribs on left side. 3.Atelectasis, left lung. 4.Pleural effusion, left side. 5.Osteoarthritis, multiple sites. Plan: We will go ahead and discontinue fentanyl. The patient is on tramadol and Tylenol which is co ntrolling her pain very well. I did talk to the patient's family and explained them about her deliri um likely due to multiple factors, 1 is her old age, second thing is not getting probably adequate am ount of sleep at nighttime, third thing, out of her normal surrounding and staying in the hospital an d last but not least, pain medications could also contribute. The patient's family does not want her to take any fentanyl and they said they talked to somebody and according to that particular person, she should try hydrocodone and I explained it to the family that any pain medication including tramad ol and hydrocodone, they all could potentially cause such problem with confusion, hallucination, and even without taking such pain medications just because of the patient's old age and out of her normal surrounding staying in the hospital and lack of adequate amount of sleep at nighttime is enough reas on to cause such problem. In any case, we will discontinue fentanyl and try hydrocodone on a p.r.n. basis. The patient's family to start with, they wanted us to transfer her to [place] to [facility] where she normally goes every time she has required hospitalization and I informed them that I will be more than happy to initiate the transfer process, but it will be considered lateral transfer and very likely the patient will not be accepted because there is no higher level of care that she n eeds. I will be happy to contact hospitalist or if they have any physicians in mind at [facility], who is willing to take her. I will be happy to communicate with such physician and we need ac ceptance from physician as well as acceptance from the hospital in order for her transfer. Then, the patient's son asked me what if they take her to [facility] on their own from this hospital; at that time, I informed them that they will have to sign against medical advice from our hospital an d take her in a private car. They wanted to think about it and after all left hospital this morning. Probably couple of hours later on, nurse communicated with family and they decided at that time darling t they will stay here. Physical therapy to continue to work with her and I will see her tomorrow for followup. If rehab takes her, we will be able to transfer her to rehab floor tomorrow. YOSEF/MODL Voice ID: [id number] Report ID: [id number]
[2018-06-26] MEDS: ALBUTEROL 2.5 MG/3 ML NEB SOL NEB SCH ×4 (02:00→20:00)
[2018-06-26] MEDS: LEVOTHYROXINE SOD 0.05 MG TABLET PO SCH (05:28)
[2018-06-26] MEDS: HYDROCODONE/APAP 5/325 MG TAB PO PRN (05:28)
[2018-06-26] MEDS: ASPIRIN EC 81 MG TAB PO SCH (08:32)
[2018-06-26] MEDS: TRAMADOL HCL 50 MG TAB PO SCH ×3 (08:32→21:48)
[2018-06-26] MEDS: ACETAMINOPHEN 500 MG TAB PO SCH ×3 (08:32→21:46)
[2018-06-26] MEDS: GABAPENTIN 300 MG CAP PO SCH ×3 (08:33→21:45)
[2018-06-26] MEDS: FAMOTIDINE 20 MG/2 ML VIAL IV SCH ×2 (08:33→21:00)
[2018-06-26] MEDS: AMLODIPINE 5 MG TAB PO SCH (08:33)
[2018-06-26] MEDS: POLYETHYL GLY 3350 17 GM/DOSE PO SCH (08:33)
[2018-06-26] MEDS: ENOXAPARIN 30 MG/0.3 ML SQ SCH (08:33)
[2018-06-26] MEDS: DOCUSATE NA/SENNA CONC 1 TAB PO SCH (21:47)
[2018-06-26] MEDS: ATORVASTATIN 10 MG TAB PO SCH (21:48)
--- NOTE | 2018-06-26 23:37 | PN ---
Date of Progress Note: 06/26/2018 Subjective: The patient was seen this morning for followup. She was lying in bed, not in distress. Her son was present with her at bedside, who informed me that the patient had some confusion and mason lucinations during nighttime. She does participate with the physical therapy. Objective: Vital Signs: Reviewed. Her blood pressure was elevated. This morning's blood pressure was 163/71, pulse rate 75 and in the last 24 hours, her blood pressure has been elevated. During mid night, blood pressure was recorded as 193/84. Impression: 1.Multiple rib fractures. 2.Hypertension. 3.Pleural effusion. 4.Atelectasis, left lung. 5.Acute delirium. 6.Osteoarthritis, multiple sites. Plan: We will go ahead and start the patient on antihypertensive medication, amlodipine 5 mg daily. The patient did have good bowel movement after Dulcolax rectal suppository yesterday. Director Of It Operations apy to continue to work with the patient. During later part of day today, I was notified by nurse an d Social Service that rehab has denied to accept her for inpatient rehab as she was considered higher level for inpatient rehab. So, I will communicate with the patient's family tomorrow and we will di scuss about possible option of going to [facility] facility versus going home with home health c are services. YOSEF/MODL Voice ID: [id number] Report ID: [id number]
[2018-06-27] MEDS: ALBUTEROL 2.5 MG/3 ML NEB SOL NEB SCH ×4 (02:00→20:00)
[2018-06-27 05:31] LABS: Absolute Lymphocytes (CBC) 0.7 K/uL (0.7-4.9); Absolute Monocytes 0.5 K/uL (0.1-1.3); Absolute Neutrophil 3.2 K/uL (1.8-8.0); Basophils % 0.6 % (0-1.3); Hematocrit 39.5 % (36.0-45.0); Lymphocytes % 14.2 % (15.3-44.8); MPV 7.9 fL (7.6-11.3); Monocytes % 11.3 % (3.3-12.3); RBC Red Blood Cell Count 4.53 M/uL (3.86-4.86)
[2018-06-27 05:50] LABS: BUN Blood Urea Nitrogen 10 mg/dL (7-18); Bicarbonate 29 mmol/L (21-32); Glucose Level 91 mg/dL (74-106); Magnesium 2.1 mg/dL (1.8-2.4); Potassium 3.8 mmol/L (3.5-5.1); Sodium Level 145 mmol/L (136-145)
[2018-06-27] MEDS: LEVOTHYROXINE SOD 0.05 MG TABLET PO SCH (06:24)
[2018-06-27] MEDS ORDERED: BISACODYL 10 MG RECTAL SUPP PR PRN (07:16)
[2018-06-27] MEDS: ENOXAPARIN 30 MG/0.3 ML SQ SCH (09:46)
[2018-06-27] MEDS: AMLODIPINE 5 MG TAB PO SCH (09:46)
[2018-06-27] MEDS: POLYETHYL GLY 3350 17 GM/DOSE PO SCH (09:46)
[2018-06-27] MEDS: GABAPENTIN 300 MG CAP PO SCH ×3 (09:47→20:37)
[2018-06-27] MEDS: TRAMADOL HCL 50 MG TAB PO SCH ×3 (09:47→20:38)
[2018-06-27] MEDS: ASPIRIN EC 81 MG TAB PO SCH (09:48)
[2018-06-27] MEDS: ACETAMINOPHEN 500 MG TAB PO SCH ×3 (09:48→20:39)
[2018-06-27] MEDS: TRAMADOL HCL 50 MG TAB PO PRN (17:45)
[2018-06-27] MEDS: ATORVASTATIN 10 MG TAB PO SCH (20:38)
[2018-06-27] MEDS: DOCUSATE NA/SENNA CONC 1 TAB PO SCH (20:38)
--- NOTE | 2018-06-28 00:10 | PN ---
Date of Progress Note: 06/27/2018 Subjective: The patient was seen this morning for followup. She was lying in bed, not in distress. Her son was present at bedside. Reported that all throughout the day yesterday she did not have muc h trouble with confusion, but during nighttime she gets confused, and is trying to reach out to thing s in the air. Appetite is fair. Did not have any bowel movement yesterday. Objective: Vital Signs: Reviewed. HEENT: Unremarkable. Lungs: Clear to auscultation. Heart Sounds: Normal. Abdomen: Soft. Bowel sounds normal. No guarding, rigidity, tenderness, or distention. Extremities: No leg edema. Laboratory Data: White count 4.6, hemoglobin 13.1, platelets 169. Sodium 145, potassium 3.8, chlori de 110, bicarb 29, BUN 10, creatinine 0.47, glucose 91, magnesium 2.1. Impression: 1.Multiple left sided rib fractures. 2.Osteoarthritis, multiple sites. 3.Left sided pleural effusion. 4.Atelectasis, left lung. 5.Constipation. 6.Hypertension. Plan: The patient's blood pressure readings reviewed, we will continue amlodipine 5 mg daily, which was started yesterday. She only used 1 dose of hydrocodone during nighttime as I understand. She dorado s tramadol and Tylenol, 3 times a day scheduled doses, which she takes it and tolerates it well. She has chronic constipation and with current pain and use of pain medication, constipation may get wors e, so what we will do is, considering her pain is under good control with current tramadol, we will d iscontinue hydrocodone. Continue tramadol and Tylenol 3 times a day, as she has been taking it, and I have ordered tramadol 50 mg every 8 hours as needed as p.r.n. medication for pain control. We will see how that helps to control pain as well as control the constipation problem. She will continue t o take Senokot and MiraLAX per order. We will also order rather Dulcolax rectal suppository daily as needed for constipation. Physical Therapy to continue to work with her and we will go ahead and req [facility] social service to assist with assisted facility placement, since inpatient rehab has raquel ed declaring the patient is at high level for inpatient rehab stay. YOSEF/MODL Voice ID: [id number] Report ID: [id number]
[2018-06-28] MEDS: ALBUTEROL 2.5 MG/3 ML NEB SOL NEB SCH ×4 (02:00→19:35)
[2018-06-28] MEDS: TRAMADOL HCL 50 MG TAB PO PRN (02:52)
[2018-06-28] MEDS: LEVOTHYROXINE SOD 0.05 MG TABLET PO SCH (06:48)
[2018-06-28] MEDS: TRAMADOL HCL 50 MG TAB PO SCH ×3 (08:12→20:48)
[2018-06-28] MEDS: ASPIRIN EC 81 MG TAB PO SCH (08:12)
[2018-06-28] MEDS: ACETAMINOPHEN 500 MG TAB PO SCH ×3 (08:13→20:49)
[2018-06-28] MEDS: AMLODIPINE 5 MG TAB PO SCH (08:13)
[2018-06-28] MEDS: GABAPENTIN 300 MG CAP PO SCH ×3 (08:13→20:49)
[2018-06-28] MEDS: ENOXAPARIN 30 MG/0.3 ML SQ SCH (08:17)
[2018-06-28] MEDS: POLYETHYL GLY 3350 17 GM/DOSE PO SCH (08:17)
[2018-06-28] MEDS: DOCUSATE NA/SENNA CONC 1 TAB PO SCH (20:47)
[2018-06-28] MEDS: ATORVASTATIN 10 MG TAB PO SCH (20:54)
--- NOTE | 2018-06-29 01:54 | PN ---
Date of Progress Note: 06/28/2018 Subjective: The patient was seen this morning for followup. She was lying in bed, not in distress. Her son was present at bedside. No new complaints or problems reported by the family this morning carmine sarah I saw her. Objective: Vital signs: Reviewed. HEENT: Unremarkable. Lungs: Clear to auscultation. Heart sounds: Normal. Abdomen: Soft. Bowel sounds normal. No guarding, rigidity, tenderness, distention. The patient dorado d a bowel movement last night as reported by family. Extremities: No leg edema. Impression: 1.Multiple left-sided rib fracture. 2.Left-sided pleural effusion. 3.Atelectasis, left lung. 4.Osteoarthritis multiple sites. 5.Chronic constipation. Plan: 1.We will go ahead and continue current medications. 2.Continue current pain medication which are tramadol and Tylenol per order. 3.Physical therapy to continue to work with the patient. 4.We are awaiting for social service to complete arrangements for [facility]. Once that is arranged, the patient should be able to go to such facility. Medically, she is stable for discharge. YOSEF/MODL Voice ID: [id number] Report ID: [id number]
[2018-06-29] MEDS: ALBUTEROL 2.5 MG/3 ML NEB SOL NEB SCH ×4 (02:00→20:00)
[2018-06-29] MEDS: TRAMADOL HCL 50 MG TAB PO PRN (02:51)
[2018-06-29] MEDS ORDERED: TRAMADOL HCL 50 MG TAB PO PRN (06:17)
[2018-06-29] MEDS: TRAMADOL HCL 50 MG TAB PO SCH ×5 (07:17→23:53)
[2018-06-29] MEDS: LEVOTHYROXINE SOD 0.05 MG TABLET PO SCH (07:17)
[2018-06-29] MEDS: ACETAMINOPHEN 500 MG TAB PO SCH ×3 (08:15→21:08)
[2018-06-29] MEDS: ASPIRIN EC 81 MG TAB PO SCH (08:16)
[2018-06-29] MEDS: POLYETHYL GLY 3350 17 GM/DOSE PO SCH (08:17)
[2018-06-29] MEDS: ENOXAPARIN 30 MG/0.3 ML SQ SCH (08:17)
[2018-06-29] MEDS: AMLODIPINE 5 MG TAB PO SCH (08:17)
[2018-06-29] MEDS: GABAPENTIN 300 MG CAP PO SCH ×3 (09:21→21:07)
--- NOTE | 2018-06-29 18:25 | PN ---
Date of Progress Note: 06/29/2018 Subjective: The patient was seen this morning for followup. The patient's sons were present at beds ebonie. Vital signs reviewed. Denies any new complaints except rib pain from her rib fracture from sharonda e to time and she responds well to tramadol that helps to control her pain. Objective: Vital signs: Reviewed. HEENT: Examination unremarkable. Lungs: Clear to auscultation. Not in any distress. bilateral good equal air entry. No rhonchi. N o rales. Heart: Sounds normal. Abdomen: Soft. Bowel sounds normal. No guarding, rigidity, tenderness, or distention. Extremities: No leg edema. Impression: 1.Multiple left-sided rib fractures. 2.Left-sided pleural effusion. 3.Atelectasis, left lung. 4.Osteoarthritis, multiple sites. Plan: We will go ahead and continue current medications. This morning, the patient requested some p .r.n. tramadol and nursing staff contacted me about that about 2 days ago. I did inform the day nurs e, when I entered the tramadol p.r.n. order, she already had scheduled doses to be given 3 times a da y, and we entered tramadol 50 mg q.8 hours p.r.n., so total she can take up to 6 tablets of tramadol in 24 hours and nurse was informed to schedule tramadol in a way that she can get something potential ly about every 4 hours. Unfortunately, nurse did not enter this in the computer and this morning berta n nurse contacted me, she was advised to change the tramadol to 50 mg every 4 hours on a scheduled ba sis so that way the patient will have adequate pain control and there will not be any confusion or pr oblem getting medication. The patient's both sons were very unhappy and when they were communicating with me this morning, they were using inappropriate words. They suggested today that they wanted he r to be transferred to [place] to [facility] and once again, I informed them that this will b e a lateral transfer. If they have a physician in mind, then I can contact that physician and if not , we will have to go through their hospitalist service and we will need to have acceptance from lesly huber in the hospital in order for her to go there. We already had this discussion with family about 3 or 4 days ago and other option the patient's family had brought up at that time was to sign against medical advice from our hospital and take her in a private car, but 3 or 4 days ago after we had dis cussion, family decided to stay here and continue to get care here and today they wanted us to go ahe ad and request a transfer to [facility]. So, we did initiate the transfer to [facility]. Other thing that is going on is Piping Supervisor trying to help make arrangements for skilled nu rsing facility for her go to facility in [place], which is family's choice but understand that there are some difficulties outlining social work therapist's note and as of this afternoon, we understand that no w social work therapist is trying to arrange for another usp. Once usp arrangements gets c ompleted, the patient will be transferred. Discharge order is in place. The patient is medically st able for transfer. I also informed this morning the patient's both sons and I gave them option of si nce they are not happy with the care that I am providing here at the hospital, if they want to switch physician, I can have one of our hospitalist physician take over the service, but at this point, the patient's son informed me that he does not want to change and he wants to continue to receive servic e from me. I also informed the patient's son that upon discharge from the hospital, we will no longe r be continuing care for this patient considering how unhappy they are with the care that I have prov ided and they will need to look for other physician, which the patient's son understands that. YOSEF/MODL Voice ID: [id number] Report ID: [id number]
[2018-06-29] MEDS: ATORVASTATIN 10 MG TAB PO SCH (21:07)
[2018-06-29] MEDS: DOCUSATE NA/SENNA CONC 1 TAB PO SCH (21:07)
[2018-06-30] MEDS: ALBUTEROL 2.5 MG/3 ML NEB SOL NEB SCH ×4 (01:14→19:50)
[2018-06-30] MEDS: TRAMADOL HCL 50 MG TAB PO SCH ×5 (03:36→20:52)
[2018-06-30] MEDS: LEVOTHYROXINE SOD 0.05 MG TABLET PO SCH (06:53)
[2018-06-30] MEDS: ASPIRIN EC 81 MG TAB PO SCH (09:02)
[2018-06-30] MEDS: AMLODIPINE 5 MG TAB PO SCH (09:02)
[2018-06-30] MEDS: GABAPENTIN 300 MG CAP PO SCH ×3 (09:02→20:52)
[2018-06-30] MEDS: ACETAMINOPHEN 500 MG TAB PO SCH ×3 (09:02→20:50)
[2018-06-30] MEDS: ENOXAPARIN 30 MG/0.3 ML SQ SCH (09:03)
[2018-06-30] MEDS: POLYETHYL GLY 3350 17 GM/DOSE PO SCH (09:05)
--- NOTE | 2018-06-30 13:45 | RAD REPORT ---
EXAM DESCRIPTION: Lan Single View06/30/2018 1:07 pm CLINICAL HISTORY: Chest pain COMPARISON: June 24, 2018 FINDINGS: Mildly displaced fractures involve five mid to lower left lateral ribs. Small left pleural effusion with left basilar atelectasis. No pneumothorax seen
--- NOTE | 2018-06-30 13:47 | RAD REPORT ---
EXAM DESCRIPTION: RAD - Lumbar Spine 3 Views - 06/30/2018 12:55 pm CLINICAL HISTORY: Back pain FINDINGS: Minimal posterior subluxation L3 on L4 with moderate disc space narrowing, subchondral scl erosis and osteophytes. No fracture is seen. Osteoporosis
--- NOTE | 2018-06-30 13:48 | RAD REPORT ---
EXAM DESCRIPTION: RAD - Thoracic Spine Ap/Lat - 06/30/2018 12:55 pm CLINICAL HISTORY: Back pain FINDINGS: A mild kyphosis No fracture is seen osteoporosis. No dislocation. Mild spondylosis
[2018-06-30] MEDS: ATORVASTATIN 10 MG TAB PO SCH (20:50)
[2018-06-30] MEDS: DOCUSATE NA/SENNA CONC 1 TAB PO SCH (20:52)
--- NOTE | 2018-06-30 21:44 | PN ---
Date of Progress Note: 06/30/2018 Subjective: The patient was seen this morning for followup. She was lying in bed, not in distress. Her both sons were present in room with her. Current medication which is Tylenol 3 times a day 500 mg and tramadol 50 mg every 4 hours seems to be controlling her pain very well to patient and family satisfaction as per my discussion today. She had a bowel movement last night. Objective: Vital Signs: Reviewed. HEENT: Unremarkable. Lungs: Clear to auscultation. No rhonchi. No rales. Heart: Sounds normal. Abdomen: Soft. Bowel sounds normal. No guarding, rigidity, tenderness, or distention. Extremities: No leg edema. Laboratory Data: Repeat chest x-ray done today shows multiple left-sided rib fracture. No evidence of pneumothorax. Small left pleural effusion with left basilar atelectasis present. X-ray of the th oracic and lumbar spine shows changes of arthritis, but no evidence of any fracture. Impression: 1.Multiple left-sided rib fracture. 2.Pleural effusion, left side. 3.Atelectasis, left side. 4.Osteoarthritis, multiple sites. 5.Chronic constipation. Plan: We will go ahead and continue current medications. Continue current DVT prophylaxis using Tia enox. I did talk to patient's both sons and informed them that at some point, I would recommend to s tart cutting back on the dose of current medication, which is Tylenol and tramadol if possible, and everette ulrich understand that and they have requested not to change any medication today, but we will discuss t he details again tomorrow to see if they are comfortable cutting back on some pain medication tomorro w. The patient currently has an air mattress overlay and family says that they are going to request nursing staff to remove that as it is difficult for patient to get in and out of the bed, and I did i nform them that the patient is at high risk of having decubitus ulcer, and if they do not want to use this particular type of mattress, then they will need to try to at least change the position every 2 hours [id number]. Family also informs me that by Monday they have worked out with the nursing hamilton e and by Monday, she will be ready to go to senior living of their choice. Once again, I did inform b otashley of the sons today that once the patient goes to senior living, they will need to continue to work with senior living physician to make adjustment on pain medication to see whether she needs more or le ss pain medication depending on her progress, as they had questioned me whether I will be involved in her care or not, and I did inform them that at the senior living where she is going, they will have t heir own physician who will be taking over her care, and I have informed both of the sons that once yohannes guerra leaves this hospital and goes to senior living, she will be under care of another physician, trey gaviria when she gets released from senior living, which they are expecting for her to stay there for 2-3 we eks or so, once she gets released from senior living, I will no longer be responsible for her care, an d they will have to look for new physician as her primary care provider, and they both understand darling t as I have informed them that we will terminate physician-patient relationship considering dissatisf action expressed by them. YOSEF/MODL Voice ID: [id number] Report ID: [id number]
[2018-07-01] MEDS: ALBUTEROL 2.5 MG/3 ML NEB SOL NEB SCH ×4 (02:00→20:00)
[2018-07-01] MEDS: TRAMADOL HCL 50 MG TAB PO SCH ×6 (03:00→19:23)
[2018-07-01] MEDS: LEVOTHYROXINE SOD 0.05 MG TABLET PO SCH (06:47)
[2018-07-01] MEDS: POLYETHYL GLY 3350 17 GM/DOSE PO SCH (08:22)
[2018-07-01] MEDS: GABAPENTIN 300 MG CAP PO SCH ×3 (08:23→21:22)
[2018-07-01] MEDS: AMLODIPINE 5 MG TAB PO SCH (08:23)
[2018-07-01] MEDS: ASPIRIN EC 81 MG TAB PO SCH (08:24)
[2018-07-01] MEDS: ENOXAPARIN 30 MG/0.3 ML SQ SCH (08:24)
[2018-07-01] MEDS: ACETAMINOPHEN 500 MG TAB PO SCH ×3 (08:27→21:22)
--- NOTE | 2018-07-01 16:20 | PN ---
Date of Progress Note: 07/01/2018 Subjective: The patient was seen this morning for followup. No new complaints or problems reported by patient. She was noted to be ambulating with walker with her 2 sons in the hallway and they repor afia that she ambulated entire koi on the hospital floor this morning. Nursing staff, when I talke d to them, they reported that she is having bowel movement on a daily basis. No nausea, vomiting. A ppetite is improving. Objective: Vital signs: Reviewed. HEENT: Examination unremarkable. Lungs: Clear to auscultation. No rales noted. No wheezing. Not using any accessory muscles of res piration. Heart: Sounds normal. Abdomen: Soft. Bowel sounds normal. No guarding, rigidity, tenderness, distention. Extremities: No leg edema. Laboratory Data: Yesterday's chest x-ray and x-ray of thoracic spine and lumbar spine results review ed with the patient and her family members. Impression: 1.Multiple left-sided rib fractures. 2.Osteoarthritis, multiple sites. 3.Left-sided pleural effusion. 4.Atelectasis, left lung. 5.Chronic constipation. Plan: The patient's pain is well controlled with current pain medication, which is Tylenol and trama dol, and the patient's sons, they do not want me to reduce any pain medication at this point. She is comfortable with current pain medication as it is controlling her pain well and she is ambulating we ll. Constipation is under good control. Family thinks that they will be able to finish all the paperwork at the intermediate tomorrow and she should be able to go to intermediate. Medically, she is stable for discharge. YOSEF/MODL Voice ID: [id number] Report ID: [id number]
[2018-07-01] MEDS: ATORVASTATIN 10 MG TAB PO SCH (21:21)
[2018-07-01] MEDS: DOCUSATE NA/SENNA CONC 1 TAB PO SCH (21:22)
[2018-07-02] MEDS: TRAMADOL HCL 50 MG TAB PO SCH ×7 (00:18→23:49)
[2018-07-02] MEDS: ALBUTEROL 2.5 MG/3 ML NEB SOL NEB SCH ×4 (01:21→20:35)
[2018-07-02 05:23] LABS: Absolute Lymphocytes (CBC) 0.9 K/uL (0.7-4.9); Absolute Monocytes 0.4 K/uL (0.1-1.3); Absolute Neutrophil 1.8 K/uL (1.8-8.0); Basophils % 0.7 % (0-1.3); Eosinophils % 5.8 % (0-4.4); Hematocrit 38.1 % (36.0-45.0); Lymphocytes % 26.3 % (15.3-44.8); MPV 7.4 fL (7.6-11.3); Monocytes % 11.2 % (3.3-12.3); RBC Red Blood Cell Count 4.37 M/uL (3.86-4.86)
[2018-07-02 06:31] LABS: BUN Blood Urea Nitrogen 9 mg/dL (7-18); Bicarbonate 28 mmol/L (21-32); Glucose Level 78 mg/dL (74-106); Magnesium 2.1 mg/dL (1.8-2.4); Sodium Level 145 mmol/L (136-145)
[2018-07-02] MEDS: LEVOTHYROXINE SOD 0.05 MG TABLET PO SCH (06:46)
[2018-07-02] MEDS: ACETAMINOPHEN 500 MG TAB PO SCH ×3 (08:31→21:18)
[2018-07-02] MEDS: AMLODIPINE 5 MG TAB PO SCH (08:31)
[2018-07-02] MEDS: GABAPENTIN 300 MG CAP PO SCH ×3 (08:31→21:22)
[2018-07-02] MEDS: ASPIRIN EC 81 MG TAB PO SCH (08:31)
[2018-07-02] MEDS: ENOXAPARIN 30 MG/0.3 ML SQ SCH (08:32)
--- NOTE | 2018-07-02 09:52 | RAD REPORT ---
EXAM DESCRIPTION: US - Extrem Venous W Compress [place] - 07/02/2018 9:43 am CLINICAL HISTORY: Leg edema, leg pain COMPARISON: None. TECHNIQUE: Real-time sonographic evaluation of the bilateral lower extremity common femoral, superfi cial femoral, popliteal and posterior tibial veins was performed. FINDINGS: Normal compressibility, flow augmentation, phasic flow and spontaneous flow are identified in the left and right lower extremity common femoral, superficial femoral, popliteal and posterior t ibial veins. No intraluminal filling defects seen. IMPRESSION: No DVT in either lower extremity.
[2018-07-02] MEDS: POLYETHYL GLY 3350 17 GM/DOSE PO SCH (11:20)
[2018-07-02] MEDS ORDERED: GABAPENTIN 100 MG CAP ONE ×2 (14:45→21:25)
[2018-07-02] MEDS: ATORVASTATIN 10 MG TAB PO SCH (21:16)
[2018-07-02] MEDS: DOCUSATE NA/SENNA CONC 1 TAB PO SCH (21:16)
--- NOTE | 2018-07-02 22:54 | PN ---
Date of Progress Note: 07/02/2018 Subjective: The patient was seen this morning for followup. She was lying in her bed, not in distre ss. Her son was present with her at bedside. The patient was doing okay all day. Had a bowel movem ent yesterday and had some pain last night, but during daytime, most of the day, she did not have muc h pain as reported by family member. Tramadol is helping to control the pain. No other new complain ts reported, except some leg swelling in the right leg. Objective: Vital Signs: Reviewed. HEENT: Unremarkable. Lungs: Clear to auscultation. No rhonchi or rales. Heart: Sounds normal. Abdomen: Soft. Bowel sounds normal. No guarding, rigidity, tenderness, distention. Extremities: Trace leg edema on the right leg. Laboratory Data: White count 3.3, hemoglobin 12.8, platelets 236. Sodium 145, potassium 4, chloride 110, bicarb 28, BUN 9, creatinine 0.44, glucose 78, magnesium 2.1. Impression: 1.Multiple left-sided rib fracture. 2.Osteoarthritis, multiple sites. 3.Right leg edema. 4.Left-sided pleural effusion. 5.Atelectasis, left lung. 6.Chronic constipation. Plan: Venous Doppler of lower extremity was done today after I saw her. It was negative for any DVT . Plan was to discharge her to [facility] today and the patient's son informed me that they were going to finish the paperwork today, so our plan was to discharge her to go to our nursing [facility] of family's choice. Later today in the evening hours, I was notified by the nurse that the lorene fernandez's family that is the patient's son, they decided not to take her to penitentiary after they went t o penitentiary and found out that she will not be able to have side rails up and there will not be an ybody in her room all the time to monitor her. They decided to take her home. A few days ago, in fa ct yesterday or day before yesterday when I was talking to the patient's sons, I did inform them that at the penitentiary very likely they will not be able to have somebody with in her room all the time and they will need to make arrangements for private caregiver to be with the patient and today after they went to penitentiary after talking to penitentiary, they decided to take her home. So now, we will have to make arrangements for home health and home physical therapy, so hopefully tomorrow once the social media developer gets back to office, we will be able to make all those arrangements and our plan is to discharge her to go home tomorrow with home health and home physical therapy. When nurse contact ed me, I informed the charge nurse to let the family know that we will have to keep her in hospital o vernight, have Social Service make arrangements for home health and home physical therapy and nursing also informed me that the family understands that they will have to provide 24-hour care at home and they will be doing so when she is back home. YOSEF/MODL Voice ID: [id number] Report ID: [id number]
[2018-07-03] MEDS: ALBUTEROL 2.5 MG/3 ML NEB SOL NEB SCH ×3 (02:00→14:01)
[2018-07-03] MEDS: TRAMADOL HCL 50 MG TAB PO SCH ×2 (03:21→06:33)
[2018-07-03] MEDS: LEVOTHYROXINE SOD 0.05 MG TABLET PO SCH (06:33)
[2018-07-03] MEDS ORDERED: HYDROCODONE/APAP 5/325 MG TAB PO PRN (07:53)
[2018-07-03 08:51] LABS: Absolute Lymphocytes (CBC) 0.8 K/uL (0.7-4.9); Absolute Monocytes 0.5 K/uL (0.1-1.3); Absolute Neutrophil 2.6 K/uL (1.8-8.0); Basophils % 0.7 % (0-1.3); Eosinophils % 3.9 % (0-4.4); Hematocrit 37.1 % (36.0-45.0); Lymphocytes % 19.8 % (15.3-44.8); MPV 7.6 fL (7.6-11.3); Monocytes % 11.6 % (3.3-12.3); RBC Red Blood Cell Count 4.24 M/uL (3.86-4.86)
[2018-07-03] MEDS ORDERED: TRAMADOL HCL 50 MG TAB PO SCH (09:00)
[2018-07-03 09:05] LABS: BUN Blood Urea Nitrogen 10 mg/dL (7-18); Bicarbonate 29 mmol/L (21-32); Glucose Level 90 mg/dL (74-106); Magnesium 2.2 mg/dL (1.8-2.4); Potassium 4.3 mmol/L (3.5-5.1); Sodium Level 143 mmol/L (136-145)
--- NOTE | 2018-07-03 09:14 | RAD REPORT ---
EXAM DESCRIPTION: RAD - Chest Single View - 07/03/2018 8:49 am CLINICAL HISTORY: fever Chest pain. COMPARISON: Chest Single View dated 06/30/2018; Chest Single View dated 06/24/2018; Chest Single View dated 06/23/2018; Chest Single View dated 05/06/2016; Lumbar Spine 3 Views dated 06/30/2018; Thoracic Sp ine Ap/Lat dated 06/30/2018 FINDINGS: Portable technique limits examination quality. Multiple left-sided rib fractures are again noted. Moderate left pleural effusion with left basilar a telectasis again seen, unchanged. A measurable pneumothorax is not present. The heart is upper limit of normal in size.
[2018-07-03] MEDS: ENOXAPARIN 30 MG/0.3 ML SQ SCH (09:18)
[2018-07-03] MEDS: ASPIRIN EC 81 MG TAB PO SCH (09:18)
[2018-07-03] MEDS: POLYETHYL GLY 3350 17 GM/DOSE PO SCH (09:18)
[2018-07-03] MEDS: GABAPENTIN 300 MG CAP PO SCH (09:19)
[2018-07-03] MEDS: ACETAMINOPHEN 500 MG TAB PO SCH (09:19)
[2018-07-03] MEDS: AMLODIPINE 5 MG TAB PO SCH (09:20)
[2018-07-03 11:48] LABS: Urine Appearance CLEAR; Urine Bilirubin NEGATIVE (NEG); Urine Blood NEGATIVE (NEG); Urine Color YELLOW; Urine Glucose NEGATIVE (NEG); Urine Protein NEGATIVE (NEG); Urine Specific Gravity 1.015 (1.005-1.030)
[2018-07-03 12:24] LABS: Urine Amorphous Sediment 1+ /HPF (NONE SEEN); Urine Bacteria <20 /HPF (<20); Urine Culture Reflex Order NOT NEEDED; Urine RBC <5 /HPF (NONE SEEN)
[2018-07-03 12:53] VITALS: BP 120/57; TEMP 98.4
[2018-07-03 14:33] VITALS: O2SAT 93
--- NOTE | 2018-07-04 05:00 | DS ---
Date of Discharge: 07/03/2018 Disposition: Discharged to go home. Physical Examination: HEENT: Unremarkable. LUNGS: Clear to auscultation. HEART: Sounds normal. ABDOMEN: Soft. Bowel sounds normal. No guarding, rigidity, tenderness, or distention. EXTREMITIES: No leg edema. Laboratory Data: Upon admission on 06/23/2018, white count 4.4, hemoglobin 13.8, platelets 165. Ini tial sodium upon admission was 146, potassium 4.3, chloride 110 bicarb 31, BUN 14, creatinine 0.68, g lucose 96. Liver function tests unremarkable. Troponin less than 0.02. Chest x-ray upon admission, no acute cardiopulmonary changes. CAT scan revealed evidence of multiple fractures involving left-s ided ribs, including ribs #6, 8, 9, 10, and 11 with presence of atelectasis and pleural effusion in t he left lower lung region. Urinalysis upon admission, no evidence of any infection. Repeat urinalys is today. No evidence of any infection on repeat yesterday. Final Diagnoses: 1.Multiple rib fracture, left side involving ribs. #6, 8, 9, 10, and 11. 2.Left pleural effusion. 3.Atelectasis, left lung. 4.Chronic constipation. 5.Hypertension. 6.Osteoarthritis, multiple sites. 7.Hyperlipidemia. 8.Hypothyroidism. 9.Diverticulosis. 10.Allergic rhinitis. Imaging Done During This Hospitalization: Venous Doppler of both lower extremity, negative for DVT. Hospital Course: This is an 87-year-old female patient, who lives at home, fell down in the bathroom . Please see dictated H and P for more information. After she was evaluated in the emergency room, she was admitted to the hospital with multiple left-sided rib fracture, left-sided pleural effusion, and atelectasis involving the lower part of the left lung. After the patient was admitted to the [facility], she was started on pain medications to help control the pain. Initially, she was on IV pain m edication, which was fentanyl, and was controlling her pain very well, but the patient had some confu ismael, hallucination, and the patient's sons requested fentanyl to be discontinued. She was getting T ylenol 500 mg 3 times a day and tramadol 50 mg 3 times a day on a scheduled basis, and fentanyl was p .r.n., but because of confusion and hallucination, family requested that medication to be discontinue d and requested hydrocodone to be started. With that combination, her pain was under good control. Later on, we discontinued hydrocodone and gave her tramadol 50 mg 3 times a day and there was an orde r 50 mg every 8 hours on tramadol p.r.n., so goal was for her to get something every 4 hours if she n eeds to in terms of pain medication with tramadol. Her pain was controlled most of the time except a t nighttime. Lot of times, her pain was not well control as I understand by talking to the patient's sons. After giving hydrocodone for 2-3 days, we stopped hydrocodone and we were maintaining her chon n control with tramadol, and IV access was lost and family requested not to restart IV, so she did no t get any further IV pain medications. Her confusion and hallucination improved over period of this hospitalization. This morning when I saw her, her son requested that we prescribe her hydrocodone be cause in his opinion, the patient's pain is not well control with tramadol alone. Last week, our [facility] recommendation was for the patient to go to inpatient rehab if she qualifies, and rehab evaluat ed her and notified us that she was at higher level of functioning for the inpatient rehab therapy, s o she was denied for inpatient rehab admission. Social service was consulted and it was recommended for the patient to go to [facility] and the patient's family started working with jigl and initially they chose [facility] out of [place], but later on Social Serv ice notified us that there was an open case with [employer] that family needed to close and then she could go to that particular facility and after the family closed that case, we were notifie d that the patient had an outstanding balance at that facility, so she could not go, so family reques afia another facility to try, which is [facility]. As I understand, yesterday, t he patient's family went to [facility] in [place], and after they visited that facilit y, they decided that they do not want to take her to [facility] and they want to take h er home, and they understand and realized that she will need 24-hour care at home and they will provi de such care. At hospital, the patient's sons were present with her all the time and I believe that they will continue to provide such care at home. When she first started having confusion and halluci nation, they wanted us to send her to [facility] and I informed them that I will be more than happy to try to initiate the transfer process, but this will be considered lateral transfer and not a higher level of care, and in order for her to go to [facility] per family's request, she wi ll have to have a physician and hospital acceptance prior to transfer, and family does not have any p hysician in mind, so I will have to [facility] to try to see if they would accept the pat ient. Then, family said that what if they would check her out of this hospital against medical advic e and take her in a private car, if that is an option available to them, and I did inform them that y es that option is available if they leave this hospital [facility] medical [facility]. Later on, they decided that they did not want to pursue either one of t his option and they wanted us to continue to look after her. At some point during this hospitalizati on, the patient's family was not happy with the care that I was providing, and they were very angry a nd upset at me, including using some inappropriate words in the patient's room and at that time, I in formed them that I can help another physician take over her care while in the hospital, but they did not want that and they wanted me to continue to look after her care, and I did inform them that consjosé millering they are not happy and satisfied with the care that I have provided, I will terminate carley n-patient relationship and I have informed them that they will need to start looking for a new physic sarah as I will not be responsible for her care 30 days from the time that I told them over the weekend , which was past weekend. Since the patient will be going home now instead of going to [facility], today I have informed the patient's son, who came to office to coremaking supervisor her prescription that the patient will need to see a physician, which will be hopefully her new primary care provider that her sons will arrange for that week after next and he asked what happens if they are not able to find a physician by that time. I informed the patient's son that I will see her a week after next if they a re not able to find any physician, but eventually as stated that 30 days from now, I will no longer b e responsible for her care and family understands that. Social Service help make arrangements for [facility] health care and home physical therapy. Family also wanted her to get hospital bed and bedside com mode. So, all those orders were written for Social Service to assist family with that. The patient' s blood pressure was elevated during this hospitalization, so we did start her on antihypertensive me dication, amlodipine 5 mg daily, and that has helped to control her blood pressure. Chronic constipa tion problem was well controlled with stool softener and Dulcolax suppository, which was used on p.r. n. basis. Lovenox was given for DVT prophylaxis during this hospitalization. She had low-grade feve r last night and no other specific complaints of any specific symptoms indicating any infection, but we did obtain urinalysis, repeat chest x-ray, CBC, chemistry, and result was reviewed. It was unrema rkable. The patient was discharged to go home in stable condition today. Discharge Medications And Instructions: 1.Continue all prior home medication. 2.Amlodipine 5 mg p.o. daily. 3.Family to provide 24 hour care at home. 4.Follow up with new physician a week after next and as stated and explained to patient's son, if th ey have not found a new physician by that time, then to call my office and bring her in for office vi sit a week after next. 5.Tramadol 50 mg p.o. 3 times a day and prescription given for 45 tablets and [place] 5 mg p.o. 3 time s a day as needed for pain and prescription given for 30 tablets and the patient's son picked up both of this prescription from my office today. The patient's son was also told that our intention and g oal is for them to cut back on her pain medication as the time goes on because her requirement for pa in medication should continue to go down as the time goes on. YOSEF/MODL Voice ID: [id number] Report ID: [id number]
== END 2018-07-03 15:40 | disposition home health service (06) | DRG 184 ==
LOC: ER 02:43 → ERHOLD 05:54 → 2ND 08:19
PROVIDERS: ADMIT Internal Medicine; ATTEND Internal Medicine
DX: S22.42XA Multiple fractures of ribs, left side, initial encounter for closed fracture (principal); J90 Pleural effusion, not elsewhere classified; J98.11 Atelectasis; W18.30XA Fall on same level, unspecified, initial encounter; Y92.002 Bathroom of unspecified non-institutional (private) residence as the place of occurrence of the external cause; K59.09 Other constipation; I10 Essential (primary) hypertension; M19.90 Unspecified osteoarthritis, unspecified site; E78.5 Hyperlipidemia, unspecified; E03.9 Hypothyroidism, unspecified; K57.90 Diverticulosis of intestine, part unspecified, without perforation or abscess without bleeding; J30.9 Allergic rhinitis, unspecified; R41.0 Disorientation, unspecified
CPT/HCPCS: 36415; 70450; 71045; 71260; 72070; 72100; 72125; 74177; 80048; 80076; 81001; 81003; 83690; 83735; 83880; 84484; 85025; 85610; 87086; 87088; 93005; 93970; 94640; 96361; 96365; 96367; 96374; 96375; 97110; 97116; 97163; 97530; 99285; J1650; J2405; J3010; J7030; Q9967